=== PATIENT | female | born 1970 | race Caucasian/White ===

== ENCOUNTER → 2018-07-14 | Outpatient (CLI) | payer BC ==
--- NOTE | 2018-07-14 10:03 | RAD ---
AP and Lateral Views of the Chest 07/14/2018 9:39 AM Indication: CXR PA AND LATERAL cough Comparison: None available Findings: There is no focal consolidation or infiltrate identified. The cardiomediastinal silhouette is within normal limits. There is no evidence of pneumothorax or pleural effusion. No acute osseous abnormalities are identified. Impression: No evidence of acute cardiopulmonary process. Electronically signed by: Pranav Jerome MD (07/14/2018 10:00 AM) [id number]
== END | disposition home or self-care (01) ==
LOC: PMG 09:19
PROVIDERS: ATTEND Registered Nurse
DX: R05 Cough (principal)
CPT/HCPCS: 71046

== ENCOUNTER → 2018-07-21 | Outpatient (CLI) | payer BC ==
[~2018-07-21] MED LIST: IOHEXOL 300 MG/ML 75 ML VIAL. IV ONE; IOHEXOL 350 MG/ML 100 ML VIAL. IV ONE; IOHEXOL 350 MG/ML 100 ML VIAL. ONE
--- NOTE | 2018-07-21 10:02 | RAD ---
Examination: CT ANGIOGRAPHY CHEST History: Increased D-Dimer, SOA. No surgery to chest. OMNI 350 100ml Comparison/Correlation: 07/12/2018 two-view chest x-ray exam Findings: Axial images of chest were obtained following IV contrast according to pulmonary arteriography protocol. Sagittal and coronal reformatted images were provided. MIP images provided. Pulmonary arterial vasculature is normal with no thromboembolic disease. No infiltrates. Tracheal bronchial tree is unremarkable. No enlarged thoracic lymph nodes. Thoracic aorta is unremarkable and well-opacified. Small hiatal hernia is present. Bony structures are unremarkable. Impression: No infiltrate. No pulmonary arterial thromboembolic disease. Small hiatal hernia. PQRS Compliance Statement: One or more of the following individualized dose reduction techniques were utilized for this examination: 1. Automated exposure control 2. Adjustment of the mA and/or kV according to patient size 3. Use of iterative reconstruction technique Electronically signed by: Migue Loya MD (07/21/2018 9:59 AM) [facility]
== END | disposition home or self-care (01) ==
LOC: CT 08:25
PROVIDERS: ATTEND Registered Nurse
DX: K44.9 Diaphragmatic hernia without obstruction or gangrene (principal)
CPT/HCPCS: 71275; Q9967

== ENCOUNTER → 2018-12-30 | Outpatient (CLI) | payer BC ==
[~2018-12-30] MED LIST changes: +IOHEXOL 240 MG/ML 50ML VIAL. ONE; +IOHEXOL 240 MG/ML 50ML VIAL. PO ONE; -IOHEXOL 350 MG/ML 100 ML VIAL. IV ONE; -IOHEXOL 350 MG/ML 100 ML VIAL. ONE
--- NOTE | 2018-12-30 13:05 | RAD ---
Study: CT abdomen/pelvis with oral and intravenous contrast Indication: Lower abdominal and pelvic pain. Comparison: None available. Technique: Helical CT imaging performed of the abdomen and pelvis after the intravenous administration of 75 cc Omnipaque contrast. Sagittal and coronal reformats were obtained. Oral contrast 30 cc Omnipaque 240. One or more of the following individualized dose reduction techniques were utilized for this examination: 1. Automated exposure control 2. Adjustment of the mA and/or kV according to patient size 3. Use of iterative reconstruction technique. Findings: The lower lungs and visualized heart are unremarkable. Small hiatal hernia. Low-attenuation of the liver compatible with hepatic steatosis. The gallbladder, pancreas, spleen, adrenal glands and kidneys are unremarkable. No hydroureteronephrosis. The urinary bladder is normal. The uterus is surgically absent. Manifestations of sigmoid diverticulitis with extensive pericolonic fat stranding such as seen on image 77 series 2. The area of active inflammation extends over a length of approximately 7 to 8 cm. Outpouching along the posterior wall of the sigmoid colon containing foci of air most compatible with a contained perforation, best appreciated on coronal image 33 series 3 and axial image 77 series 2. No drainable fluid collection present at this time. Unremarkable small bowel. No mesenteric or pelvic adenopathy. Unremarkable body wall soft tissues and musculature. Mild retrolisthesis of L1 on L2 and L2 on L3 as well as trace grade 1 anterolisthesis of L4 on L5. Multilevel facet degeneration. No acute or destructive osseous abnormality. Impression: 1. Findings of sigmoid diverticulitis which is complicated by a contained perforation along the posterior wall of the sigmoid colon (reference coronal image 33 series 3 and axial image 77 series 2). No drainable fluid collection present at this time. The extent of inflammation extends over a length of approximately 7 to 8 cm. No acute abnormality seen elsewhere throughout the abdomen/pelvis. 2. Hepatic steatosis. 3. Small hiatal hernia. Electronically signed by: LEONID ROOT MD (12/30/2018 1:02 PM) [email or web address]
== END | disposition home or self-care (01) ==
LOC: CT 10:18
PROVIDERS: ATTEND Physician Assistant Medical
DX: K57.32 Diverticulitis of large intestine without perforation or abscess without bleeding (principal); K76.0 Fatty (change of) liver, not elsewhere classified; K44.9 Diaphragmatic hernia without obstruction or gangrene
CPT/HCPCS: 74177; Q9966; Q9967